=== PATIENT | female | born 1935 | race Asian ===

== ENCOUNTER 2021-08-13 23:20 | Inpatient (IN) | payer MEDICAID, MEDICARE ==
[~2021-08-13] VITALS: Ht 157.5 cm; Wt 34.5 kg
[~2021-08-13 23:20] MED LIST: ASA81 PO; CHOL500013 PO; CYAN100010 PO; LIP10 PO; MEMA7CAP PO; MIRT-114 PO; NEPH PO; PRO40 PO; RALO60TA PO
[2021-08-13 23:38] VITALS: BP_SYST 121
[2021-08-13] MEDS ORDERED: NS 1000 ML IV.SOLN IV ONE (23:45)
[2021-08-13] MEDS ORDERED: PIPERACILLIN/TAZO 3.38 GM in D5W 50 ML IV ONE (23:45)
[2021-08-14] MEDS ORDERED: DEXTROSE 50% JECT 50 ML DISP.SYRIN ONE (00:02)
[2021-08-14] MEDS ORDERED: LOSA50TA3 PO (00:29)
[2021-08-14] MEDS ORDERED: DEXTROSE 50% JECT 50 ML DISP.SYRIN IVP ONE ×2 (00:45)
[2021-08-14] MEDS ORDERED: D10W 1,000 ML IV SCH (01:15)
[2021-08-14 01:22] LABS: BASOPHILS # (AUTO) 0.1 K/uL (0.0-0.2); EOSINOPHILS % (AUTO) 0.3 % (0.0-4.0); MONOCYTES # (AUTO) 0.5 K/uL (0.0-1.0)
[2021-08-14 01:27] LABS: BASOPHILS % (AUTO) 0.5 % (0.0-2.0); HEMATOCRIT 25.8 % (36-48); LYMPHOCYTES # (AUTO) 1.1 K/uL (1.0-5.5); LYMPHOCYTES % (AUTO) 10.3 % (20.5-51.5); MEAN CORPUSCULAR HEMOGLOBIN 32 pg (27-31); MEAN CORPUSCULAR HGB CONC 31 % (32-36); MEAN CORPUSCULAR VOLUME 103 fL (79.0-98.0); MONOCYTES % (AUTO) 4.4 % (1.7-9.3); NEUTROPHILS # (AUTO) 8.9 K/uL (1.8-7.7); NEUTROPHILS % (AUTO) 84.5 % (40.0-70.0); PLATELET COUNT (AUTO) 164 K/uL (130-430); RED BLOOD CELL COUNT(AUTO) 2.51 MIL/uL (4.2-6.2); RED CELL DISTRIBUTION WIDTH 14.6 % (9.0-15.0); WHITE BLOOD COUNT (AUTO) 10.5 K/uL (4.8-10.8)
[2021-08-14 01:41] LABS: INR 1.1 (0.8-1.2)
[2021-08-14 01:46] LABS: ANION GAP 14 (5-15); CALCIUM 7.7 mg/dL (8.4-11.0); GLUCOSE 352 mg/dL (70-99); SODIUM SERUM 151 mmol/L (136-145)
[2021-08-14 01:59] LABS: ALANINE AMINOTRANSFERASE 12 U/L (12-78); ALBUMIN 2.9 g/dL (3.4-4.8); ASPARTATE AMINOTRANSFERASE 17 U/L (10-37); TOTAL BILIRUBIN 0.1 mg/dL (0.0-1.0)
[2021-08-14 02:02] LABS: CHLORIDE 122 mmol/L (98-107); POTASSIUM 6.7 mmol/L (3.5-5.1)
[2021-08-14 02:03] LABS: UREA NITROGEN, BLOOD 173 mg/dL (8-21)
[2021-08-14 02:04] LABS: CREATININE 7.74 mg/dL (0.55-1.30)
[2021-08-14] MEDS ORDERED: PIPERACILLIN/TAZOBACTAM 3.375 GM/VIAL (ZOSYN) IV ONE (02:11)
[2021-08-14 02:13] LABS: ACETAMINOPHEN < 1 ug/mL (1-30)
[2021-08-14 02:15] LABS: ACETONE, SERUM NEGATIVE (NEGATIVE)
[2021-08-14] MEDS ORDERED: CALCIUM GLUCONATE 1 GM/10 ML VIAL IVP ONE (02:15)
[2021-08-14] MEDS ORDERED: SODIUM POLYSTYRENE SULFONATE 15 GM/60 ML UDBTL RC ONE (02:15)
[2021-08-14] MEDS ORDERED: SODIUM BICARBONATE 8.4% VIAL 50 MEQ/50 ML VIAL INJ ONE (02:15)
[2021-08-14] MEDS ORDERED: FOLIC ACID 1 MG, THIAMINE HCL 100 MG, MAGNESIUM SULFATE 1 GM, MVI 10 ML in NACL 0.9% 1,... IV ONE (02:30)
[2021-08-14] MEDS ORDERED: SODIUM BICARBONATE 8.4% JECT 50 MEQ/50 ML SYRINGE ONE (03:19)
[2021-08-14] MEDS ORDERED: SODIUM BICARBONATE 8.4% JECT 50 MEQ/50 ML SYRINGE IVP ONE ×2 (03:30→15:45)
[2021-08-14 04:02] LABS: PHOSPHORUS 7.2 mg/dL (2.7-4.5)
[2021-08-14 04:04] LABS: BARBITURATE, URINE NEGATIVE (NEG <=200); BENZODIAZEPINE, URINE NEGATIVE (NEG <=150); CANNABINOID, URINE NEGATIVE (NEG <=50); COCAINE, URINE NEGATIVE (NEG <=150); METHAMPHETAMINES SCREEN,URINE NEGATIVE (NEG <=500); OPIATE, URINE NEGATIVE (NEG <=100); PHENCYCLIDINE SCREEN,URINE NEGATIVE (NEG <=25); UR TRICYCLIC ANTIDEPRESSANTS NEGATIVE (NEG <=300); URINE AMPHETAMINE NEGATIVE (NEG <=500); URINE METHADONE NEGATIVE (NEG <=200); URINE OXYCODONE SCREEN NEGATIVE (NEG <=100); URINE PROPOXYPHENE SCREEN NEGATIVE (NEG <=300)
[2021-08-14 04:35] LABS: BILIRUBIN,URINE NEGATIVE (NEGATIVE); BLOOD, URINE TRACE (NEGATIVE); CLARITY/URINE CLEAR (CLEAR); COLOR,URINE AMBER (YELLOW); GLUCOSE,URINE 2+ (NEGATIVE); KETONES,URINE NEGATIVE (NEGATIVE); PH,URINE 5.5 (5.0-8.0); PROTEIN URINE TRACE (NEGATIVE)
[2021-08-14 04:36] LABS: LEUKOCYTE ESTERASE ,URINE 3+ (NEGATIVE); NITRITE, URINE NEGATIVE (NEGATIVE); UROBILINOGEN,URINE 0.2 (0.2-1.0)
[2021-08-14 04:46] LABS: BACTERIA,URINE FEW /HPF (None Seen); RBC,URINE >100 /HPF (0-3); WBC,URINE >100 /HPF (0-3)
[2021-08-14 04:47] LABS: MUCUS,URINE 3+ /LPF (None Seen)
[2021-08-14] MEDS ORDERED: PANTOPRAZOLE SODIUM 80 MG in NS 100 ML IVP ONE (05:00)
[2021-08-14] MEDS ORDERED: THIAMINE HCL IV ONE (05:15)
[2021-08-14] MEDS ORDERED: D5/0.45 NS 1,000 ML IV SCH (05:15)
[2021-08-14] MEDS ORDERED: FOLIC ACID IV ONE (05:15)
[2021-08-14] MEDS ORDERED: NACL IV ONE (05:15)
[2021-08-14] MEDS ORDERED: MVI IV ONE (05:15)
[2021-08-14] MEDS ORDERED: FOLIC ACID 5 MG/ML VIAL IV ONE (06:05)
[2021-08-14] MEDS ORDERED: THIAMINE HCL 100 MG/ML VIAL ONE (06:06)
[2021-08-14] MEDS ORDERED: MVI 10 ML VIAL IV ONE (06:06)
[2021-08-14] MEDS: PANTOPRAZOLE SODIUM 40 MG in NS 50 ML IV SCH ×4 (06:45→20:00)
[2021-08-14] MEDS ORDERED: PANTOPRAZOLE SODIUM 40 MG/VIAL (PROTONIX) ONE (06:46)
[2021-08-14] MEDS ORDERED: NACL 0.9% 1,000 ML IV ONE (07:30)
[2021-08-14 11:30] VITALS: BP_SYST 123
[2021-08-14 11:40] VITALS: BP_SYST 123
[2021-08-14] MEDS ORDERED: SODIUM POLYSTYRENE SULFONATE 15 GM/60 ML UDBTL PO ONE (15:45)
[2021-08-14 16:39] VITALS: BP_SYST 103; BP_SYST 121
[2021-08-14 16:39] LABS: BASOPHILS % (AUTO) 0.3 % (0.0-2.0); EOSINOPHILS # (AUTO) 0.3 K/uL (0.0-0.4); EOSINOPHILS % (AUTO) 3.1 % (0.0-4.0); HEMATOCRIT 26.1 % (36-48); HEMOGLOBIN 8.4 g/dL (12.0-16.0); LYMPHOCYTES % (AUTO) 9.1 % (20.5-51.5); MEAN CORPUSCULAR HEMOGLOBIN 32 pg (27-31); MEAN CORPUSCULAR HGB CONC 32 % (32-36); MONOCYTES # (AUTO) 0.6 K/uL (0.0-1.0); NEUTROPHILS # (AUTO) 8.6 K/uL (1.8-7.7); NEUTROPHILS % (AUTO) 81.5 % (40.0-70.0); PLATELET COUNT (AUTO) 145 K/uL (130-430); RED BLOOD CELL COUNT(AUTO) 2.64 MIL/uL (4.2-6.2); RED CELL DISTRIBUTION WIDTH 13.7 % (9.0-15.0); WHITE BLOOD COUNT (AUTO) 10.6 K/uL (4.8-10.8)
[2021-08-14 16:40] LABS: MEAN CORPUSCULAR VOLUME 99 fL (79.0-98.0)
[2021-08-14 16:44] VITALS: BP_SYST 100
[2021-08-14 16:58] LABS: ALBUMIN 2.7 g/dL (3.4-4.8); ANION GAP 11 (5-15); ASPARTATE AMINOTRANSFERASE 17 U/L (10-37); CALCIUM 7.9 mg/dL (8.4-11.0); CREATININE 4.86 mg/dL (0.55-1.30); GLUCOSE 107 mg/dL (70-99); POTASSIUM 4.8 mmol/L (3.5-5.1); THYROID STIMULATING HORMONE 0.56 uIu/mL (0.36-3.74); TOTAL BILIRUBIN 0.1 mg/dL (0.0-1.0)
[2021-08-14 17:09] LABS: CHLORIDE 131 mmol/L (98-107); SODIUM SERUM 160 mmol/L (136-145); UREA NITROGEN, BLOOD 121 mg/dL (8-21)
[2021-08-14 17:19] LABS: ALANINE AMINOTRANSFERASE 9 U/L (12-78)
[2021-08-14] MEDS: D5W 1,000 ML IV SCH (17:46)
[2021-08-14 20:00] VITALS: BP_SYST 118
[2021-08-14 20:53] LABS: BILIRUBIN,URINE NEGATIVE (NEGATIVE); BLOOD, URINE 2+ (NEGATIVE); CLARITY/URINE HAZY (CLEAR); COLOR,URINE YELLOW (YELLOW); GLUCOSE,URINE NEGATIVE (NEGATIVE); KETONES,URINE NEGATIVE (NEGATIVE); LEUKOCYTE ESTERASE ,URINE 3+ (NEGATIVE); NITRITE, URINE NEGATIVE (NEGATIVE); PH,URINE 6.5 (5.0-8.0); PROTEIN URINE 1+ (NEGATIVE); UROBILINOGEN,URINE 0.2 (0.2-1.0)
[2021-08-14 21:05] LABS: BACTERIA,URINE MODERATE /HPF (None Seen); EOSINOPHIL,URINE FEW; MUCUS,URINE None Seen /LPF (None Seen); WBC,URINE >100 /HPF (0-3)
[2021-08-15 00:36] VITALS: BP_SYST 133
[2021-08-15] MEDS: PANTOPRAZOLE SODIUM 40 MG in NS 50 ML IV SCH ×2 (01:00→06:00)
[2021-08-15] MEDS ORDERED: PANTOPRAZOLE SODIUM 40 MG/VIAL (PROTONIX) ONE (01:32)
[2021-08-15] MEDS: D5W 1,000 ML IV SCH ×2 (02:24→12:13)
[2021-08-15 06:47] LABS: BASOPHILS % (AUTO) 0.5 % (0.0-2.0); EOSINOPHILS # (AUTO) 0.3 K/uL (0.0-0.4); EOSINOPHILS % (AUTO) 3.6 % (0.0-4.0); HEMATOCRIT 24.6 % (36-48); HEMOGLOBIN 8.2 g/dL (12.0-16.0); LYMPHOCYTES # (AUTO) 1.2 K/uL (1.0-5.5); LYMPHOCYTES % (AUTO) 14.4 % (20.5-51.5); MEAN CORPUSCULAR HEMOGLOBIN 33 pg (27-31); MEAN CORPUSCULAR HGB CONC 33 % (32-36); MEAN CORPUSCULAR VOLUME 97 fL (79.0-98.0); MONOCYTES # (AUTO) 0.5 K/uL (0.0-1.0); MONOCYTES % (AUTO) 5.9 % (1.7-9.3); NEUTROPHILS # (AUTO) 6.3 K/uL (1.8-7.7); NEUTROPHILS % (AUTO) 75.6 % (40.0-70.0); PLATELET COUNT (AUTO) 124 K/uL (130-430); RED BLOOD CELL COUNT(AUTO) 2.53 MIL/uL (4.2-6.2); RED CELL DISTRIBUTION WIDTH 13.4 % (9.0-15.0); WHITE BLOOD COUNT (AUTO) 8.3 K/uL (4.8-10.8)
[2021-08-15 07:53] LABS: ANION GAP 7 (5-15); CALCIUM 7.3 mg/dL (8.4-11.0); CREATININE 3.44 mg/dL (0.55-1.30); GLUCOSE 155 mg/dL (70-99); PHOSPHORUS 3.6 mg/dL (2.7-4.5); SODIUM SERUM 152 mmol/L (136-145); UREA NITROGEN, BLOOD 81 mg/dL (8-21)
[2021-08-15 07:59] LABS: CHLORIDE 124 mmol/L (98-107)
[2021-08-15 08:00] VITALS: BP_SYST 132
[2021-08-15 11:06] LABS: URINE SODIUM, RANDOM 106 mmol/L (40-220)
[2021-08-15 12:48] VITALS: BP_SYST 115
[2021-08-15 16:06] VITALS: BP_SYST 131; BP_SYST 153
[2021-08-15 16:27] VITALS: BP_SYST 131
[2021-08-15] MEDS ORDERED: IPRATROPIUM/ALBUTEROL SULFATE 3 ML AMPUL.NEB (DUONEB) INH PRN (16:30)
[2021-08-15] MEDS: DEXTROSE 50% JECT 50 ML DISP.SYRIN IVP PRN (18:10)
[2021-08-15 20:00] VITALS: BP_SYST 129
[2021-08-16] MEDS: D5W 1,000 ML IV SCH ×3 (00:12→18:25)
[2021-08-16 01:09] VITALS: BP_SYST 102
[2021-08-16 07:02] LABS: BASOPHILS % (AUTO) 0.7 % (0.0-2.0); EOSINOPHILS # (AUTO) 0.4 K/uL (0.0-0.4); EOSINOPHILS % (AUTO) 5.4 % (0.0-4.0); HEMATOCRIT 25.9 % (36-48); HEMOGLOBIN 8.6 g/dL (12.0-16.0); LYMPHOCYTES # (AUTO) 1.3 K/uL (1.0-5.5); LYMPHOCYTES % (AUTO) 19.2 % (20.5-51.5); MEAN CORPUSCULAR HEMOGLOBIN 32 pg (27-31); MEAN CORPUSCULAR HGB CONC 33 % (32-36); MEAN CORPUSCULAR VOLUME 97 fL (79.0-98.0); MONOCYTES # (AUTO) 0.5 K/uL (0.0-1.0); MONOCYTES % (AUTO) 7.1 % (1.7-9.3); NEUTROPHILS # (AUTO) 4.7 K/uL (1.8-7.7); NEUTROPHILS % (AUTO) 67.6 % (40.0-70.0); PLATELET COUNT (AUTO) 98 K/uL (130-430); RED BLOOD CELL COUNT(AUTO) 2.67 MIL/uL (4.2-6.2); RED CELL DISTRIBUTION WIDTH 12.8 % (9.0-15.0)
[2021-08-16 07:39] LABS: ALANINE AMINOTRANSFERASE 15 U/L (12-78); ALBUMIN 2.4 g/dL (3.4-4.8); ANION GAP 10 (5-15); ASPARTATE AMINOTRANSFERASE 30 U/L (10-37); CALCIUM 7.7 mg/dL (8.4-11.0); CHLORIDE 111 mmol/L (98-107); CREATININE 2.09 mg/dL (0.55-1.30); GLUCOSE 154 mg/dL (70-99); POTASSIUM 3.9 mmol/L (3.5-5.1); SODIUM SERUM 140 mmol/L (136-145); TOTAL BILIRUBIN 0.4 mg/dL (0.0-1.0); UREA NITROGEN, BLOOD 46 mg/dL (8-21)
[2021-08-16 10:46] VITALS: BP_SYST 183
[2021-08-16 10:59] VITALS: BP_SYST 183
[2021-08-16 11:34] VITALS: BP_SYST 131
[2021-08-16 15:13] VITALS: BP_SYST 121
[2021-08-16 20:00] VITALS: BP_SYST 117
[2021-08-17 00:21] VITALS: BP_SYST 118
[2021-08-17] MEDS: D5W 1,000 ML IV SCH ×2 (06:12→13:17)
[2021-08-17 07:56] LABS: ANION GAP 9 (5-15); CALCIUM 8.3 mg/dL (8.4-11.0); CHLORIDE 107 mmol/L (98-107); CREATININE 1.68 mg/dL (0.55-1.30); GLUCOSE 123 mg/dL (70-99); POTASSIUM 4.1 mmol/L (3.5-5.1); SODIUM SERUM 134 mmol/L (136-145); UREA NITROGEN, BLOOD 32 mg/dL (8-21)
[2021-08-17 08:11] VITALS: BP_SYST 137
[2021-08-17 12:27] VITALS: BP_SYST 110
[2021-08-17 16:24] VITALS: BP_SYST 106
[2021-08-17 20:00] VITALS: BP_SYST 105
[2021-08-17] MEDS: SODIUM BICARBONATE 650 MG TABLET PO SCH (21:50)
[2021-08-17] MEDS: D5/0.45 NS 1,000 ML IV SCH (22:08)
[2021-08-18] VITALS: BP_SYST 117
[2021-08-18 06:58] LABS: BASOPHILS % (AUTO) 0.5 % (0.0-2.0); EOSINOPHILS # (AUTO) 0.3 K/uL (0.0-0.4); EOSINOPHILS % (AUTO) 5.4 % (0.0-4.0); HEMATOCRIT 22.1 % (36-48); HEMOGLOBIN 7.4 g/dL (12.0-16.0); LYMPHOCYTES # (AUTO) 1.1 K/uL (1.0-5.5); LYMPHOCYTES % (AUTO) 20.3 % (20.5-51.5); MEAN CORPUSCULAR HEMOGLOBIN 32 pg (27-31); MEAN CORPUSCULAR HGB CONC 34 % (32-36); MEAN CORPUSCULAR VOLUME 95 fL (79.0-98.0); MONOCYTES # (AUTO) 0.5 K/uL (0.0-1.0); MONOCYTES % (AUTO) 9.3 % (1.7-9.3); NEUTROPHILS # (AUTO) 3.5 K/uL (1.8-7.7); NEUTROPHILS % (AUTO) 64.5 % (40.0-70.0); PLATELET COUNT (AUTO) 82 K/uL (130-430); RED BLOOD CELL COUNT(AUTO) 2.34 MIL/uL (4.2-6.2); RED CELL DISTRIBUTION WIDTH 12.7 % (9.0-15.0); WHITE BLOOD COUNT (AUTO) 5.4 K/uL (4.8-10.8)
[2021-08-18 07:30] LABS: ANION GAP 10 (5-15); CHLORIDE 105 mmol/L (98-107); POTASSIUM 3.9 mmol/L (3.5-5.1); SODIUM SERUM 134 mmol/L (136-145)
[2021-08-18 08:06] LABS: CALCIUM 7.6 mg/dL (8.4-11.0); CREATININE 1.27 mg/dL (0.55-1.30); GLUCOSE 106 mg/dL (70-99); UREA NITROGEN, BLOOD 19 mg/dL (8-21)
[2021-08-18] MEDS: SODIUM BICARBONATE 650 MG TABLET PO SCH ×2 (10:09→21:53)
[2021-08-18] MEDS: D5/0.45 NS 1,000 ML IV SCH (12:15)
[2021-08-18 12:26] VITALS: BP_SYST 110
[2021-08-18 16:52] VITALS: BP_SYST 126
[2021-08-18] MEDS: DEXTROSE 50% JECT 50 ML DISP.SYRIN IVP PRN (17:44)
[2021-08-18 20:00] VITALS: BP_SYST 94
[2021-08-19 01:47] VITALS: BP_SYST 84
[2021-08-19 06:50] LABS: BASOPHILS % (AUTO) 0.6 % (0.0-2.0); EOSINOPHILS # (AUTO) 0.2 K/uL (0.0-0.4); LYMPHOCYTES # (AUTO) 0.7 K/uL (1.0-5.5); MEAN CORPUSCULAR HEMOGLOBIN 31 pg (27-31); MEAN CORPUSCULAR HGB CONC 33 % (32-36); MEAN CORPUSCULAR VOLUME 94 fL (79.0-98.0); MONOCYTES # (AUTO) 0.4 K/uL (0.0-1.0); MONOCYTES % (AUTO) 9.5 % (1.7-9.3); NEUTROPHILS % (AUTO) 67.9 % (40.0-70.0); PLATELET COUNT (AUTO) 81 K/uL (130-430); RED BLOOD CELL COUNT(AUTO) 2.24 MIL/uL (4.2-6.2); WHITE BLOOD COUNT (AUTO) 4.4 K/uL (4.8-10.8)
[2021-08-19 08:00] VITALS: BP_SYST 115
[2021-08-19 08:43] LABS: ANION GAP 11 (5-15); CALCIUM 8.3 mg/dL (8.4-11.0); CHLORIDE 108 mmol/L (98-107); CREATININE 1.09 mg/dL (0.55-1.30); GLUCOSE 80 mg/dL (70-99); POTASSIUM 3.8 mmol/L (3.5-5.1); SODIUM SERUM 139 mmol/L (136-145); UREA NITROGEN, BLOOD 16 mg/dL (8-21)
[2021-08-19] MEDS: D5/0.45 NS 1,000 ML IV SCH (11:24)
[2021-08-19 11:43] VITALS: BP_SYST 111
[2021-08-19] MEDS: ALBUMIN HUMAN 25% 50 ML IV SCH ×3 (11:49→19:15)
[2021-08-19 11:53] VITALS: BP_SYST 122
[2021-08-19] MEDS: SODIUM BICARBONATE 650 MG TABLET PO SCH ×2 (12:20→21:02)
[2021-08-19 19:30] VITALS: BP_SYST 111
[2021-08-19 20:00] VITALS: BP_SYST 111
[2021-08-20] VITALS (7 sets, daily range): BP systolic 108–130
[2021-08-20 07:04] LABS: EOSINOPHILS # (AUTO) 0.3 K/uL (0.0-0.4); EOSINOPHILS % (AUTO) 6.4 % (0.0-4.0); HEMATOCRIT 32.3 % (36-48); HEMOGLOBIN 10.9 g/dL (12.0-16.0); LYMPHOCYTES # (AUTO) 1.1 K/uL (1.0-5.5); LYMPHOCYTES % (AUTO) 22.9 % (20.5-51.5); MEAN CORPUSCULAR HEMOGLOBIN 30 pg (27-31); MEAN CORPUSCULAR HGB CONC 34 % (32-36); MEAN CORPUSCULAR VOLUME 88 fL (79.0-98.0); MONOCYTES # (AUTO) 0.5 K/uL (0.0-1.0); MONOCYTES % (AUTO) 10.1 % (1.7-9.3); NEUTROPHILS # (AUTO) 2.9 K/uL (1.8-7.7); NEUTROPHILS % (AUTO) 59.6 % (40.0-70.0); PLATELET COUNT (AUTO) 72 K/uL (130-430); RED BLOOD CELL COUNT(AUTO) 3.69 MIL/uL (4.2-6.2); WHITE BLOOD COUNT (AUTO) 4.9 K/uL (4.8-10.8)
[2021-08-20] MEDS: D5/0.45 NS 1,000 ML IV SCH (08:17)
[2021-08-20] MEDS: SODIUM BICARBONATE 650 MG TABLET PO SCH ×2 (08:17→20:19)
[2021-08-20 08:33] LABS: ANION GAP 12 (5-15); CALCIUM 7.5 mg/dL (8.4-11.0); CHLORIDE 110 mmol/L (98-107); CREATININE 0.93 mg/dL (0.55-1.30); GLUCOSE 100 mg/dL (70-99); POTASSIUM 3.7 mmol/L (3.5-5.1); SODIUM SERUM 140 mmol/L (136-145); UREA NITROGEN, BLOOD 13 mg/dL (8-21)
== END 2021-08-20 20:32 | disposition home health service (06) | DRG 720 ==
LOC: SED 23:20 → SIC 08-14 05:07 → SMU 08-14 09:45
PROVIDERS: ADMIT Internal Medicine; ATTEND Internal Medicine
PROC: 05HY33Z Insertion of Infusion Device into Upper Vein, Percutaneous Approach (ICD-10-PCS; 2021-08-16)
PROC: B54MZZA Ultrasonography of Right Upper Extremity Veins, Guidance (ICD-10-PCS; 2021-08-16)
PROC: 30233N1 Transfusion of Nonautologous Red Blood Cells into Peripheral Vein, Percutaneous Approach (ICD-10-PCS; principal; 2021-08-19)
DX: A41.9 Sepsis, unspecified organism (principal); E43 Unspecified severe protein-calorie malnutrition; E87.2 Acidosis; E87.0 Hyperosmolality and hypernatremia; G30.9 Alzheimer's disease, unspecified; D63.8 Anemia in other chronic diseases classified elsewhere; K92.2 Gastrointestinal hemorrhage, unspecified; F02.80 Dementia in other diseases classified elsewhere, unspecified severity, without behavioral disturbance, psychotic disturbance, mood disturbance, and anxiety; N39.0 Urinary tract infection, site not specified; E16.2 Hypoglycemia, unspecified; E86.0 Dehydration; Z20.822 Contact with and (suspected) exposure to COVID-19; I12.9 Hypertensive chronic kidney disease with stage 1 through stage 4 chronic kidney disease, or unspecified chronic kidney disease; N18.9 Chronic kidney disease, unspecified; E87.5 Hyperkalemia; E78.5 Hyperlipidemia, unspecified; Z66 Do not resuscitate; Z79.82 Long term (current) use of aspirin; Z79.899 Other long term (current) drug therapy; Z82.49 Family history of ischemic heart disease and other diseases of the circulatory system; Z86.73 Personal history of transient ischemic attack (TIA), and cerebral infarction without residual deficits
CPT/HCPCS: 36415; 36600; 70450-TC; 71045; 76376; 80048; 80053; 80307; 81000; 82009; 82043; 82140; 82272; 82533; 82570; 82803-TC; 82962; 83036; 83605; 83735; 84100; 84302; 84443; 84484; 85025; 85610-TC; 85730-TC; 86886; 86900; 86901; 86920; 87040; 87081; 87086; 92610-GN; 93005; 94760; 96374; 96375; 99285; C9113; G0480; G0481; J0610; J2543; J3411; J3490; P9021; P9046

== ENCOUNTER 2021-10-19 14:15 | Inpatient (IN) | payer MEDICAID, MEDICARE ==
[~2021-10-19] VITALS: Ht 152.4 cm; Wt 43.1 kg
[~2021-10-19 14:15] MED LIST changes: -CHOL500013 PO; -CYAN100010 PO; -MIRT-114 PO; -NEPH PO; -PRO40 PO
[2021-10-19 14:32] VITALS: BP_SYST 122
[2021-10-19] MEDS ORDERED: GASTROGRAFIN 120 ML ONE (18:20)
[2021-10-19 19:21] LABS: BASOPHILS # (AUTO) 0.1 K/uL (0.0-0.2); BASOPHILS % (AUTO) 1.4 % (0.0-2.0); EOSINOPHILS # (AUTO) 0.1 K/uL (0.0-0.4); EOSINOPHILS % (AUTO) 1.6 % (0.0-4.0); HEMATOCRIT 27.3 % (36-48); LYMPHOCYTES # (AUTO) 1.8 K/uL (1.0-5.5); LYMPHOCYTES % (AUTO) 28.3 % (20.5-51.5); MEAN CORPUSCULAR HEMOGLOBIN 32 pg (27-31); MEAN CORPUSCULAR HGB CONC 33 % (32-36); MEAN CORPUSCULAR VOLUME 95 fL (79.0-98.0); MONOCYTES # (AUTO) 0.4 K/uL (0.0-1.0); MONOCYTES % (AUTO) 5.7 % (1.7-9.3); NEUTROPHILS # (AUTO) 4.1 K/uL (1.8-7.7); PLATELET COUNT (AUTO) 257 K/uL (130-430); RED BLOOD CELL COUNT(AUTO) 2.87 MIL/uL (4.2-6.2); RED CELL DISTRIBUTION WIDTH 19.6 % (9.0-15.0); WHITE BLOOD COUNT (AUTO) 6.5 K/uL (4.8-10.8)
[2021-10-19 19:24] LABS: ANION GAP 11 (5-15); CALCIUM 8.2 mg/dL (8.4-11.0); CHLORIDE 103 mmol/L (98-107); CREATININE 0.86 mg/dL (0.55-1.30); GLUCOSE 101 mg/dL (70-99); POTASSIUM 5.2 mmol/L (3.5-5.1); SODIUM SERUM 138 mmol/L (136-145); UREA NITROGEN, BLOOD 38 mg/dL (8-21)
[2021-10-19 19:28] LABS: PROTHROMBIN TIME 10.5 SECS (9.5-12.5)
[2021-10-19 19:29] LABS: ALANINE AMINOTRANSFERASE 20 U/L (12-78); ALBUMIN 2.8 g/dL (3.4-4.8); ASPARTATE AMINOTRANSFERASE 22 U/L (10-37); LIPASE 499 U/L (73-393); TOTAL BILIRUBIN 0.5 mg/dL (0.0-1.0)
[2021-10-19] MEDS ORDERED: IBUP-1969 PO (19:57)
[2021-10-19] MEDS ORDERED: ONDANSETRON HCL 4 MG/2 ML VIAL IVP PRN (20:15)
[2021-10-19] MEDS ORDERED: MORPHINE 2 MG/ML INJ. SYRINGE IVP PRN (20:15)
[2021-10-20 02:00] VITALS: BP_SYST 128
[2021-10-20 08:00] VITALS: BP_SYST 128
[2021-10-20] MEDS ORDERED: CEFAZOLIN 1 GM IVPB PREMIX 50 ML IV ONE (10:00)
[2021-10-20] MEDS: D5/0.45 NS 1,000 ML IV SCH ×2 (10:40→16:41)
[2021-10-20 11:33] VITALS: BP_SYST 126
[2021-10-20 15:23] VITALS: BP_SYST 121
[2021-10-20 20:00] VITALS: BP_SYST 120
[2021-10-21] MEDS: D5/0.45 NS 1,000 ML IV SCH (00:15)
[2021-10-21 00:34] VITALS: BP_SYST 126
[2021-10-21 06:57] LABS: BASOPHILS # (AUTO) 0.1 K/uL (0.0-0.2); EOSINOPHILS # (AUTO) 0.1 K/uL (0.0-0.4); EOSINOPHILS % (AUTO) 0.8 % (0.0-4.0); HEMATOCRIT 25.8 % (36-48); LYMPHOCYTES # (AUTO) 1.4 K/uL (1.0-5.5); LYMPHOCYTES % (AUTO) 21.6 % (20.5-51.5); MEAN CORPUSCULAR HEMOGLOBIN 33 pg (27-31); MEAN CORPUSCULAR HGB CONC 35 % (32-36); MEAN CORPUSCULAR VOLUME 94 fL (79.0-98.0); MONOCYTES # (AUTO) 0.6 K/uL (0.0-1.0); MONOCYTES % (AUTO) 9.5 % (1.7-9.3); NEUTROPHILS # (AUTO) 4.5 K/uL (1.8-7.7); NEUTROPHILS % (AUTO) 67.1 % (40.0-70.0); PLATELET COUNT (AUTO) 249 K/uL (130-430); RED BLOOD CELL COUNT(AUTO) 2.74 MIL/uL (4.2-6.2); RED CELL DISTRIBUTION WIDTH 19.5 % (9.0-15.0); WHITE BLOOD COUNT (AUTO) 6.7 K/uL (4.8-10.8)
[2021-10-21 07:34] LABS: ANION GAP 9 (5-15); CALCIUM 8.2 mg/dL (8.4-11.0); CHLORIDE 102 mmol/L (98-107); CREATININE 0.79 mg/dL (0.55-1.30); GLUCOSE 75 mg/dL (70-99); POTASSIUM 4.2 mmol/L (3.5-5.1); SODIUM SERUM 134 mmol/L (136-145); UREA NITROGEN, BLOOD 29 mg/dL (8-21)
[2021-10-21 07:36] LABS: PROTHROMBIN TIME 10.2 SECS (9.5-12.5)
[2021-10-21 08:00] VITALS: BP_SYST 122
[2021-10-21 08:05] LABS: LIPASE 179 U/L (73-393)
[2021-10-21 11:22] VITALS: BP_SYST 109
[2021-10-21] MEDS ORDERED: CEFAZOLIN 1 GM IVPB PREMIX 50 ML IV ONE (13:30)
[2021-10-21] MEDS ORDERED: MIDAZOLAM HCL 5 MG/5 ML VIAL ONE (13:39)
[2021-10-21] MEDS ORDERED: fentaNYL CITRATE/PF 100 MCG/2 ML AMP ONE (13:39)
[2021-10-21 15:36] VITALS: BP_SYST 141
[2021-10-21 20:00] VITALS: BP_SYST 133
[2021-10-22 01:28] VITALS: BP_SYST 135
[2021-10-22 07:14] LABS: BASOPHILS # (AUTO) 0.1 K/uL (0.0-0.2); BASOPHILS % (AUTO) 1.1 % (0.0-2.0); EOSINOPHILS % (AUTO) 0.1 % (0.0-4.0); HEMATOCRIT 26.8 % (36-48); HEMOGLOBIN 9.2 g/dL (12.0-16.0); LYMPHOCYTES # (AUTO) 0.9 K/uL (1.0-5.5); MEAN CORPUSCULAR HEMOGLOBIN 32 pg (27-31); MEAN CORPUSCULAR HGB CONC 34 % (32-36); MEAN CORPUSCULAR VOLUME 95 fL (79.0-98.0); MONOCYTES # (AUTO) 0.6 K/uL (0.0-1.0); MONOCYTES % (AUTO) 6.6 % (1.7-9.3); NEUTROPHILS % (AUTO) 83.2 % (40.0-70.0); PLATELET COUNT (AUTO) 273 K/uL (130-430); RED BLOOD CELL COUNT(AUTO) 2.84 MIL/uL (4.2-6.2); RED CELL DISTRIBUTION WIDTH 18.9 % (9.0-15.0); WHITE BLOOD COUNT (AUTO) 9.7 K/uL (4.8-10.8)
[2021-10-22 07:36] LABS: ANION GAP 7 (5-15); CALCIUM 8.4 mg/dL (8.4-11.0); CHLORIDE 100 mmol/L (98-107); CREATININE 0.76 mg/dL (0.55-1.30); GLUCOSE 126 mg/dL (70-99); SODIUM SERUM 132 mmol/L (136-145); UREA NITROGEN, BLOOD 25 mg/dL (8-21)
[2021-10-22 08:00] VITALS: BP_SYST 135
[2021-10-22 11:36] VITALS: BP_SYST 126
[2021-10-22] MEDS ORDERED: LORazepam 1 MG TABLET PO ONE (12:00)
[2021-10-22 16:25] VITALS: BP_SYST 123
[2021-10-22 20:00] VITALS: BP_SYST 126
[2021-10-22] MEDS: LORazepam 1 MG TABLET PO SCH (20:56)
[2021-10-23] VITALS: BP_SYST 145
[2021-10-23] MEDS: D5/0.45 NS 1,000 ML IV SCH (04:39)
[2021-10-23] MEDS: LORazepam 1 MG TABLET PO SCH ×2 (09:59→21:00)
[2021-10-23 12:00] VITALS: BP_SYST 123
[2021-10-23 15:56] VITALS: BP_SYST 119
[2021-10-23 16:00] VITALS: BP_SYST 119
[2021-10-23 20:00] VITALS: BP_SYST 121
[2021-10-24] VITALS: BP_SYST 132
[2021-10-24] MEDS: D5/0.45 NS 1,000 ML IV SCH (09:30)
[2021-10-24] MEDS: LORazepam 1 MG TABLET PO SCH (09:30)
[2021-10-24 12:12] VITALS: BP_SYST 121
== END 2021-10-24 12:30 | disposition home health service (06) | DRG 720 ==
LOC: SED 14:15 → EDBD 14:15 → SMU 20:03 → MERGE 20:03 → SMU 23:35 → STU 10-21 15:05 → SMU 10-23 12:29
PROVIDERS: ADMIT Internal Medicine; ATTEND Internal Medicine
PROC: 0DH63UZ Insertion of Feeding Device into Stomach, Percutaneous Approach (ICD-10-PCS; principal; 2021-10-21 13:40)
DX: A41.9 Sepsis, unspecified organism (principal); K31.6 Fistula of stomach and duodenum; E43 Unspecified severe protein-calorie malnutrition; K94.23 Gastrostomy malfunction; F03.90 Unspecified dementia, unspecified severity, without behavioral disturbance, psychotic disturbance, mood disturbance, and anxiety; R13.10 Dysphagia, unspecified; E87.1 Hypo-osmolality and hyponatremia; E86.0 Dehydration; D64.9 Anemia, unspecified; I36.1 Nonrheumatic tricuspid (valve) insufficiency; Z66 Do not resuscitate; Z20.822 Contact with and (suspected) exposure to COVID-19; I12.9 Hypertensive chronic kidney disease with stage 1 through stage 4 chronic kidney disease, or unspecified chronic kidney disease; N18.9 Chronic kidney disease, unspecified; Z68.1 Body mass index [BMI] 19.9 or less, adult; Z86.73 Personal history of transient ischemic attack (TIA), and cerebral infarction without residual deficits; Z74.01 Bed confinement status; I10 Essential (primary) hypertension
CPT/HCPCS: 36415; 43246; 71045; 74240-TC; 76376; 78226; 80048; 80053; 82962; 83690; 85025; 85610-TC; 85730-TC; 86886; 86900; 86901; 87081; 93005; 99285; A9537; G0378; J0690; J2250; J3010; Q9963